=== PATIENT | male | born 1995 | race American Indian/Alaskan Native ===

== ENCOUNTER 2022-01-20 05:05 | Emergency (ER) | payer SELFPAY ==
[2022-01-20 05:12] VITALS: BP 111/66
--- NOTE | 2022-01-20 08:24 | Emergency Department Report ---
Minor Respiratory - HPI Chief Complaint: Earache Stated Complaint: EAR PAIN Time Seen by Provider: 01/20/22 07:35 Duration: 3 Days Pain Location: Ear Severity: mild Minor Respiratory: Yes Able to Tolerate Fluids, Yes Ear Pain, No Rhinorrhea, No Sore Throat, No Cough, No Sick Contacts, No Hemoptysis, No Chest Pain, No Shortness of Breath, No Fever Other History: 26 yo comes to er with left ear pain. 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 - Family History Family history: no significant - Social History Smoking Status: Never Smoker Substance Use Type: Alcohol - Medications Home Medications: Home Medications Medication Instructions Recorded Confirmed Last Taken Type Amoxicillin [Trimox CAP] 500 mg PO BID #20 capsule 01/20/22 Unknown Rx Minor Respiratory Exam - Exam General: Vital signs noted. No distress. Alert and acting appropriately. HEENT: Yes Moist Mucous Membranes, No Pharyngeal Erythema, No Pharyngeal Exudates, No Rhinorrhea, No Conjuctival Injection, No Frontal Tenderness, No Maxillary Tenderness Ear: Left TM Bulge, Left TM Erythema, Left EAC Pain, Left EAC Discharge Neck: Yes Supple, No Adenopathy Lungs: Yes Good Air Exchange, No Wheezes, No Ronchi, No Stridor, No Cough, No Labored Respirations, No Retractions, No Use of Accessory Muscles, No Other Abnormal Lung Sounds Heart: Yes Regular, No Murmur Abdomen: Yes Normal Bowel Sounds, No Tenderness, No Peritoneal Signs Skin: No Rash, No Edema Neurologic: Alert and oriented, no deficits. Musculoskeletal: Unremarkable. ED Course Vital Signs 01/20/22 05:10 Temperature 98.3 F Pulse Rate 68 Respiratory 18 Rate Blood Pressure 111/66 O2 Sat by Pulse 97 Oximetry ED Medical Decision Making - Medical Decision Making OM on exam Vital Signs 01/20/22 05:10 Temperature 98.3 F Pulse Rate 68 Respiratory 18 Rate Blood Pressure 111/66 O2 Sat by Pulse 97 Oximetry vss no fever taking po dc home with dc plan of care including diet, meds, activity and follow up. - Differential Diagnosis om/oe Critical care attestation.: If time is entered above; I have spent that time in minutes in the direct care of this critically ill patient, excluding procedure time. ED Disposition Clinical Impression: Otitis media Qualifiers: Otitis media type: unspecified Chronicity: acute Qualified Code(s): H66.90 - Otitis media, unspecified, unspecified ear Disposition: 01 HOME / SELF CARE / HOMELESS Is pt being admited?: No Does the pt Need Aspirin: No Condition: Stable Instructions: Otitis Media, Adult, [id number] Additional Instructions: motrin or tylenol for pain med as ordered today until gone follow up with pcp referral below do not put anything in your ear no meds no qtips Prescriptions: Amoxicillin [Trimox CAP] 500 mg PO BID #20 capsule Referrals: BIBI SEGUNDO MD [Primary Care Provider] - 3-5 Days Forms: Work/School Release Form(ED) Time of Disposition: 08:22
== END 2022-01-20 09:28 | disposition home or self-care (01) ==
LOC: ED 05:05
DX: H66.92 Otitis media, unspecified, left ear (principal); Z72.89 Other problems related to lifestyle; Z98.890 Other specified postprocedural states
CPT/HCPCS: 99282